=== PATIENT | male | born 1990 | race African-American/Black ===

== ENCOUNTER 2017-01-14 17:28 | Emergency (ER) | payer BC, OTHER ==
[2017-01-14 17:41] VITALS: BP 131/101; PULSE 67; TEMP 98.3; BMI 25.8
--- NOTE | 2017-01-14 17:59 | PDOC ---
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 Patient reports "there was a machine coming my way, and I was trying to push against it to move it away from me, and I put my foot up on the wall to brace myself, but then my ankle twisted and I felt a pop." Patient is ambulatory in the fast track area but reports pain and swelling to both sides of ankle. No recent travel or sick contacts. PAST MEDICAL HISTORY: Denies past medical history FAMILY HISTORY: Denies SOCIAL HISTORY:Denies tobacco, alcohol, illicit drug use. SURGICAL HISTORY: Denies ALLERGIES: No known drug allergies REVIEW OF SYSTEMS General/Constitutional: Denies fever or chills. Denies weakness, weight change. HEENT: Denies change in vision. Denies ear pain or discharge. Denies sore throat. Cardiovascular: Denies chest pain or shortness of breath. Respiratory: Denies cough, wheezing, or hemoptysis. Gastrointestinal: Denies nausea, vomiting, diarrhea or constipation. Denies rectal bleeding. Genitourinary: Denies dysuria, frequency, or change in urination. Musculoskeletal: L ankle pain. PHYSICAL EXAM General Appearance: Well-appearing, appropriately dressed. No apparent distress. HEENT: EOMI, PERRLA. No conjunctival pallor. No photophobia, scleral icterus. Respiratory/Chest: Lungs CTAB. Cardiovascular: RRR. S1, S2. Vascular Pulses: Dorsalis-Pedis (R): 2+, Dorsalis-Pedis (L): 2+ Musculoskeletal/Extremities: Tenderness to medial and lateral malleolus of L ankle, minimal swelling to lateral malleolus. Normal inspection. FROM of all extremities, normal capillary refill. Pelvis Stable. No CVA tenderness. No tenderness to extremities, pedal edema, swelling, erythema or deformity. Integumentary: Appropriate color, dry, warm. No cyanosis, erythema, jaundice or rash Neurologic: bit tapper II-XII intact. Fully oriented, alert. Appropriate mood/affect. Motor strength 5/5. No appreciable EOM palsy, facial droop or sensory deficit. 01/14/17 18:07 Past History - Past Medical History Allergies/Adverse Reactions: Allergies Allergy/AdvReac Type Severity Reaction Status Date / Time No Known Allergies Allergy Verified 01/14/17 17:30 Home Medications: Ambulatory Orders Ibuprofen 600 mg PO TID #30 tablet 01/14/17 Anemia: No Asthma: No COPD: No CHF: No Diabetes: No HTN: No Hypercholesterolemia: No - Surgical History Abdominal Surgery: No Appendectomy: No GI Surgery: No - Suicide/Smoking/Psychosocial Hx Smoking Status: No Smoking History: Current some day smoker Number of Cigarettes Smoked Daily: 5 Information on smoking cessation initiated: No Hx Alcohol Use: No Drug/Substance Use Hx: No Substance Use Type: None *Physical Exam - Vital Signs Last Vital Signs Temp Pulse Resp BP Pulse Ox 98.3 F 67 18 131/101 100 01/14/17 17:30 01/14/17 17:30 01/14/17 17:30 01/14/17 17:30 01/14/17 17:30 Medical Decision Making - Medical Decision Making 01/14/17 18:14 27 yo M with no PMH presents to [facility] with pain to L ankle s/p work accident. -xray toradol jose roberto bandage, crutches *DC/Admit/Observation/Transfer Diagnosis at time of Disposition: Ankle sprain Qualifiers: Encounter type: initial encounter Involved ligament of ankle: unspecified ligament Laterality: left Qualified Code(s): S93.402A - Sprain of unspecified ligament of left ankle, initial encounter; S93.402A - Sprain of unspecified ligament of left ankle, initial encounter - Discharge Dispostion Disposition: HOME Condition at time of disposition: Stable Admit: No - Prescriptions Prescriptions: Ibuprofen 600 mg PO TID #30 tablet - Referrals Referrals: Lucina Talbot MD [Primary Care Provider] - Todd Pitt MD [Staff Physician] - - Patient Instructions Printed Discharge Instructions: DI for Ankle Sprain, How To Perform RICE (Rest , Ice, Compress, Elevate) Additional Instructions: Please take medication as prescribed. Follow up with orthopedics if pain persists past 1 week. If you develop any increased swelling or pain, loss of sensation to your foot, or any new or worsening symptoms, please return to the ER. - Post Discharge Activity Forms/Work/School Notes: Back to Work
[2017-01-14] MEDS ORDERED: KETOROLAC TROMETHAMINE 60 MG/2 ML VIAL IM ONE (18:00)
[2017-01-14] MEDS ORDERED: KETOROLAC TROMETHAMINE 60 MG/2 ML VIAL ONE (18:09)
== END 2017-01-14 18:26 | disposition home or self-care (01) ==
LOC: JERFT 17:28
PROC: 3E0233Z Introduction of Anti-inflammatory into Muscle, Percutaneous Approach (ICD-10-PCS; principal; 2017-01-14)
DX: S93.402A Sprain of unspecified ligament of left ankle, initial encounter (principal); X50.1XXA Overexertion from prolonged static or awkward postures, initial encounter; Y93.89 Activity, other specified; Y92.512 Supermarket, store or market as the place of occurrence of the external cause; Y99.0 Civilian activity done for income or pay
CPT/HCPCS: 73610-TC-LT; 73630-TC-LT; 99281-25

== ENCOUNTER 2017-06-13 03:06 | Emergency (ER) | payer OTHER ==
[2017-06-13] MEDS ORDERED: PENICILLIN V POTASSIUM 500 MG TABLET PO ONE (03:17)
[2017-06-13] MEDS ORDERED: IBUPROFEN 600 MG TABLET (FP) PO ONE ×2 (03:17→03:24)
[2017-06-13] MEDS ORDERED: ACETAMINOPHEN WITH CODEINE 300MG/30MG TABLET PO ONE (03:17)
[2017-06-13] MEDS ORDERED: ACETAMINOPHEN WITH CODEINE 300MG/30MG TABLET ONE (03:24)
--- NOTE | 2017-06-13 03:25 | PDOC ---
History of Present Illness - General History Source: Patient <Bony Buckley - Last Filed: 06/13/17 03:17> - General Exam Limitations: No Limitations - History of Present Illness Initial Comments: 06/13/17 03:27 The patient is a 27 year old male, with no significant past medical history, who presents to the emergency department complaining of, progressively worsening toothache for approx. one week. The patient states he was woken up secondary to the toothache this morning at 3 am (approx. 30 minutes ago) and so he decided to come to the ED for evaluation. That patient states he has not visited a dentist for the toothache. He denies any recent fevers, chills, headache or dizziness. He denies any recent nausea, vomit, diarrhea or constipation. He denies any recent chest pain or shortness of breath. Allergies: NKA <Hamlet Blackburn - Last Filed: 06/13/17 03:28> - General Stated Complaint: TOOTHACHE Time Seen by Provider: 06/13/17 03:14 Past History - Past Medical History Anemia: No Asthma: No COPD: No CHF: No Diabetes: No HTN: No Hypercholesterolemia: No - Surgical History Abdominal Surgery: No Appendectomy: No GI Surgery: No - Suicide/Smoking/Psychosocial Hx Smoking Status: No Smoking History: Current some day smoker Number of Cigarettes Smoked Daily: 5 Hx Alcohol Use: No Drug/Substance Use Hx: No Substance Use Type: None <Luna Buckleyan - Last Filed: 06/13/17 03:17> <Hamlet Blackburn - Last Filed: 06/13/17 03:28> - Past Medical History Allergies/Adverse Reactions: Allergies Allergy/AdvReac Type Severity Reaction Status Date / Time No Known Allergies Allergy Verified 01/14/17 17:30 Home Medications: Ambulatory Orders Ibuprofen 600 mg PO TID #30 tablet 01/14/17 Acetaminophen W/ Codeine #3 [Tylenol # 3] 1 tab PO Q6H #20 tablet MDD 4 Ibuprofen [Motrin] 600 mg PO TID #30 tablet 06/13/17 Penicillin V Potassium [Pen Vee K -] 500 mg PO TID #30 tablet 06/13/17 Review of Systems - Review of Systems Comments:: 06/13/17 03:27 CONSTITUTIONAL: Absent: fever, no chills, no fatigue EYES: Absent: visual changes ENT: Present: (+) Toothache. Absent: ear pain, no sore throat CARDIOVASCULAR: Absent: chest pain, no palpitations RESPIRATORY: Absent: cough, no SOB GI: Absent: abdominal pain, no nausea, no vomiting, no constipation, no diarrhea GENITOURINARY: Absent: dysuria, no frequency, no hematuria MUSKULOSKELETAL: Absent: back pain, no arthralgia, no myalgia SKIN: Absent: rash NEURO: Absent: headache <Hamlet Blacbkurn - Last Filed: 06/13/17 03:28> *Physical Exam - Vital Signs Last Vital Signs Temp Pulse Resp BP Pulse Ox 98.3 F 84 18 138/89 100 06/13/17 03:19 06/13/17 03:19 06/13/17 03:19 06/13/17 03:19 06/13/17 03:19 - Physical Exam Comments: 06/13/17 03:28 GENERAL: Well-appearing, well-nourished. No apparent distress. HEENT: (+) Tooth number 17 left lower molar appears to be broken and slightly inflamed. Normocephalic, atraumatic. PERRL, EOM intact. CARDIOVASCULAR: Normal S1, S2. Regular rate and rhythm. PULMONARY: Clear to auscultation bilaterally. ABDOMEN: Soft, non-distended, non-tender. EXTREMITIES: Normal ROM in all four extremities. No gross deformities. SKIN: Warm, dry. No rash NEUROLOGICAL: No focal neurological deficits. <Hamlet Blackburn - Last Filed: 06/13/17 03:28> ED Treatment Course - Medications Given in the ED: ED Medications Discontinued Medications Generic Name Dose Route Start Last Admin Trade Name Dharmesh PRN Reason Stop Dose Admin Acetaminophen/Codeine Phosphate 1 tab 06/13/17 03:17 06/13/17 03:26 Tylenol # 3 - PO 06/13/17 03:18 1 tab ONCE ONE Administration <Hamlet Blackburn Filed: 06/13/17 03:28> Medical Decision Making - Medical Decision Making 06/13/17 03:26 Dr. Buckley: The scribe's documentation has been prepared under my direction and personally reviewed by me in its entirery. I confirm that the note above accurately reflects all work, treatment, procedures, and medical decision making performed by me. <Bony Buckley - Last Filed: 06/13/17 03:17> *DC/Admit/Observation/Transfer - Discharge Dispostion Admit: No <Bony Buckley - Last Filed: 06/13/17 03:17> - Attestations Scribe Attestion: 06/13/17 03:28 Documentation prepared by Hamlet Blackburn, acting as medical coding instructor for Bony Buckley MD. <Hamlet Blackburn - Last Filed: 06/13/17 03:28> Diagnosis at time of Disposition: Toothache - Discharge Dispostion Disposition: HOME Condition at time of disposition: Stable - Prescriptions Prescriptions: Acetaminophen W/ Codeine #3 [Tylenol # 3] 1 tab PO Q6H #20 tablet MDD 4 Ibuprofen [Motrin] 600 mg PO TID #30 tablet Penicillin V Potassium [Pen Vee K -] 500 mg PO TID #30 tablet - Patient Instructions Printed Discharge Instructions: DI for Tooth Decay Additional Instructions: Please take medication as directed. Make an appointment with a dentist immediately. Avoid alcohol or driving when taking Tylenol #3.
[2017-06-13 03:26] VITALS: BP 138/89; PULSE 84; TEMP 98.3; BMI 25.8
== END 2017-06-13 03:30 | disposition home or self-care (01) ==
LOC: JER 03:06
DX: K08.89 Other specified disorders of teeth and supporting structures (principal)
CPT/HCPCS: 99281-25

== ENCOUNTER 2017-09-18 19:03 | Emergency (ER) | payer SELFPAY ==
[2017-09-18 19:46] VITALS: BP 140/83; PULSE 97; TEMP 98.6; BMI 25.8
--- NOTE | 2017-09-18 20:23 | PDOC ---
History of Present Illness - General Chief Complaint: Sore Throat Stated Complaint: HAND INJURY/ PAIN Time Seen by Provider: 09/18/17 20:15 - History of Present Illness Initial Comments: 27-year-old male presents for evaluation of sore throat 2 days with subjective fever at home and chills. Painful swallowing no other associated symptoms no comorbidities. He also has right hand pain after punching a wall about 2-1/2-3 weeks ago. He points to the MCP J of his right hand fourth finger. 09/18/17 20:21 Past History - Past Medical History Allergies/Adverse Reactions: Allergies Allergy/AdvReac Type Severity Reaction Status Date / Time No Known Allergies Allergy Verified 01/14/17 17:30 Home Medications: Ambulatory Orders Amoxicillin - [Amoxicillin 500mg Capsule -] 500 mg PO BID 10 Days #20 capsule Anemia: No Asthma: No COPD: No CHF: No Diabetes: No HTN: No Hypercholesterolemia: No - Surgical History Abdominal Surgery: No Appendectomy: No GI Surgery: No - Suicide/Smoking/Psychosocial Hx Smoking Status: No Smoking History: Never smoked Have you smoked in the past 12 months: No Number of Cigarettes Smoked Daily: 5 Information on smoking cessation initiated: No Hx Alcohol Use: No Drug/Substance Use Hx: No Substance Use Type: None Review of Systems - Review of Systems Constitutional: Yes: See HPI, Chills, Fever, Weakness. No: Night Sweats HEENTM: Yes: Throat Pain Musculoskeletal: Yes: See HPI, Joint Pain All Other Systems: Reviewed and Negative *Physical Exam - Vital Signs Last Vital Signs Temp Pulse Resp BP Pulse Ox 98.6 F 97 H 18 140/83 100 09/18/17 19:40 09/18/17 19:40 09/18/17 19:40 09/18/17 19:40 09/18/17 19:40 - Physical Exam Comments: GENERAL: The patient is awake, alert, and fully oriented, in no acute distress. HEAD: Normal with no signs of trauma. EYES: Pupils equal, round and reactive to light, extraocular movements intact, sclera anicteric, conjunctiva clear. ENT: Ears normal, nares patent, oropharynx mildly injected without exudates. Moist mucous membranes. NECK: Normal range of motion, supple without lymphadenopathy, JVD, or masses. LUNGS: Breath sounds equal, clear to auscultation bilaterally. No wheezes, and no crackles. HEART: Regular rate and rhythm, normal S1 and S2 without murmur, rub or gallop. ABDOMEN: Soft, nontender, normoactive bowel sounds. No guarding, no rebound. No masses. EXTREMITIES: Normal range of motion, no edema. No clubbing or cyanosis. No cords, erythema, or tenderness. NEUROLOGICAL: Cranial nerves II through XII grossly intact. Normal speech, normal gait. PSYCH: Normal mood, normal affect. SKIN: Warm, Dry, normal turgor, no rashes or lesions noted. The right hand is normal skin color and temperature without swelling he has tenderness over the fourth MCP J full range of motion without any gross sensorimotor deficits she's neurovascularly intact without any evidence of instability. 09/18/17 20:22 ED Treatment Course - RADIOLOGY Radiology Studies Ordered: Category Date Time Status HAND- RIGHT [RAD] Stat Radiology 09/18/17 20:20 Ordered Medical Decision Making - Medical Decision Making Strep test pending as well as an x-ray of his right hand. 09/18/17 20:23 09/18/17 20:52 Series of the right hand are negative strep test is still pending. 09/18/17 21:01 Test is positive I'll treat him with amoxicillin for 10 days twice a day *DC/Admit/Observation/Transfer Diagnosis at time of Disposition: Contusion, hand, Strep pharyngitis - Discharge Dispostion Disposition: HOME Condition at time of disposition: Stable Decision to Admit order: No - Prescriptions Prescriptions: Amoxicillin - [Amoxicillin 500mg Capsule -] 500 mg PO BID 10 Days #20 capsule - Referrals Referrals: Fransisco Perea [Non Staff, Medical] - Jorgito Diaz MD [Staff Physician] - - Patient Instructions Printed Discharge Instructions: Contusion, Strep Throat Additional Instructions: You have a right hand contusion which can be treated with ice and elevation. I recommended hand surgery follow-up for further evaluation and treatment options. Your strep test was positive I placed you on amoxicillin twice daily for 10 days this should clear the infection. Please follow-up with her primary care physician If your symptoms worsen or go unresolved prior to follow-up with hand surgery or your primary care physician please return to the emergency room both follow- ups should be done within the next 1-2 days. - Post Discharge Activity
== END 2017-09-18 21:26 | disposition home or self-care (01) ==
LOC: JERFT 19:03
DX: J02.0 Streptococcal pharyngitis (principal); B95.0 Streptococcus, group A, as the cause of diseases classified elsewhere; S60.221A Contusion of right hand, initial encounter; W22.8XXA Striking against or struck by other objects, initial encounter; Y93.89 Activity, other specified; Y92.89 Other specified places as the place of occurrence of the external cause; Y99.8 Other external cause status
CPT/HCPCS: 73130-TC-RT-FY; 87070; 87077; 87430; 99281-25

== ENCOUNTER 2018-12-15 11:40 | Emergency (ER) | payer OTHER ==
[2018-12-15 11:55] VITALS: BP 110/69; PULSE 73; TEMP 98.2; BMI 26.6
[2018-12-15] MEDS ORDERED: IBUPROFEN 600 MG TABLET (FP) PO ONE ×2 (12:27→12:34)
--- NOTE | 2018-12-15 12:41 | PDOC ---
History of Present Illness - General Chief Complaint: Pain Stated Complaint: PAIN Time Seen by Provider: 12/15/18 11:58 History Source: Patient Exam Limitations: No Limitations - History of Present Illness Initial Comments: 12/15/18 12:34 28 yo M w/ no sig PMHx comes in c/o bilateral foot pain for the past week. He c/ o R sided heel pain and L sided lateral foot pain. He plays a lot of basketball , walks a lot and says that he was also having achilles pain bilaterally but that has resolved. He has not taken any meds for pain. Denies numbness/tingling , no weakness, no ankle/knee/back pain, no other complaints today. Past History - Past Medical History Allergies/Adverse Reactions: Allergies Allergy/AdvReac Type Severity Reaction Status Date / Time No Known Allergies Allergy Verified 12/15/18 11:50 Home Medications: Ambulatory Orders Amoxicillin - [Amoxicillin 500mg Capsule -] 500 mg PO BID 10 Days #20 capsule Ibuprofen 600 mg PO TID #18 tablet 12/15/18 Anemia: No Asthma: No COPD: No CHF: No Diabetes: No HTN: No Hypercholesterolemia: No - Surgical History Abdominal Surgery: No Appendectomy: No GI Surgery: No - Suicide/Smoking/Psychosocial Hx Smoking Status: No Smoking History: Current every day smoker Have you smoked in the past 12 months: No Number of Cigarettes Smoked Daily: 5 Information on smoking cessation initiated: No Hx Alcohol Use: No Drug/Substance Use Hx: No Substance Use Type: None Review of Systems - Review of Systems Able to Perform ROS?: Yes Constitutional: No: Chills, Fever, Malaise, Night Sweats HEENTM: No: Eye Pain, Recent change in vision, Throat Pain Respiratory: No: Cough, Shortness of Breath Cardiac (ROS): No: Chest Pain, Palpitations, Chest Tightness ABD/GI: No: Diarrhea, Nausea, Vomiting, Abdominal cramping : No: Dysuria, Hematuria Musculoskeletal: No: Back Pain Integumentary: No: Rash Neurological: No: Headache, Numbness, Dizziness Psychiatric: No: Change in Appetite Endocrine: No: Unexplained Weight Loss *Physical Exam - Vital Signs Last Vital Signs Temp Pulse Resp BP Pulse Ox 98.2 F 73 18 110/69 100 12/15/18 11:47 12/15/18 11:47 12/15/18 11:47 12/15/18 11:47 12/15/18 11:47 - Physical Exam General Appearance: Yes: Nourished. No: Apparent Distress HEENT: positive: ELAINE, Normal ENT Inspection, Normal Voice. negative: Pale Conjunctivae, Scleral Icterus (R), Scleral Icterus (L) Neck: negative: Decreased range of motion Respiratory/Chest: negative: Respiratory Distress, Accessory Muscle Use Cardiovascular: positive: Regular Rate Musculoskeletal: positive: Normal Inspection. negative: CVA Tenderness, Decreased Range of Motion Extremity: positive: Normal Capillary Refill, Normal Inspection, Normal Range of Motion, Other (R heel with mild tenderness, no skin changes, no erythema, no warmth, no streaking (-)hager test bilaterally, no calf tenderness b/l, R foot with mild tenderness to the lateral aspect of the foot, no skin changes, no erythema/warmth, good pulses bilaterally, good sensory function, good cap refill. NVI. Bilateral ankles w/ FROM, 5/5 strength ). negative: Tender, Pedal Edema Integumentary: positive: Normal Color, Dry. negative: Jaundice, Rash Neurologic: positive: Fully Oriented, Alert, Normal Mood/Affect ED Treatment Course - RADIOLOGY Radiology Studies Ordered: Category Date Time Status FOOT-LEFT [RAD] Stat Radiology 12/15/18 12:27 Ordered FOOT-RIGHT [RAD] Stat Radiology 12/15/18 12:27 Ordered Medical Decision Making - Medical Decision Making 12/15/18 12:45 28 yo M w/ foot pain, likely heel spurs, plantar fasciitis, will do xrays, give motrin and reassess. 12/15/18 13:22 Xrays show pes planus, R foot with mild osteoarthritis. WIll discharge with ortho follow up MOtrin PRN for pain Return for worsening/concerning symptoms Pt verbalizes understanding and agrees with plan *DC/Admit/Observation/Transfer Diagnosis at time of Disposition: Foot pain, bilateral Pes planus Qualifiers: Laterality: unspecified laterality Qualified Code(s): M21.40 - Flat foot [pes planus] (acquired), unspecified foot Osteoarthritis of foot Qualifiers: Osteoarthritis type: unspecified Laterality: unspecified laterality Qualified Code(s): M19.079 - Primary osteoarthritis, unspecified ankle and foot - Discharge Dispostion Disposition: HOME Condition at time of disposition: Stable - Referrals Referrals: Jorgito De Guzman MD [Primary Care Provider] - Jose C Carter DO [Staff Physician] - - Patient Instructions Additional Instructions: Please call your PMD and the orthopedist as suggested for a follow up appointment. Return for worsening/concerning symptoms. - Post Discharge Activity
== END 2018-12-15 13:37 | disposition home or self-care (01) ==
LOC: JER 11:40
DX: M21.42 Flat foot [pes planus] (acquired), left foot (principal); M21.41 Flat foot [pes planus] (acquired), right foot; M19.071 Primary osteoarthritis, right ankle and foot
CPT/HCPCS: 73630-TC-LT; 73630-TC-RT-FY; 99281-25

== ENCOUNTER 2021-01-03 20:42 | Emergency (ER) | payer OTHER ==
[2021-01-03 20:47] VITALS: BP 125/72; PULSE 89; TEMP 97.8; BMI 24.2
[2021-01-03] MEDS ORDERED: DIPHTH,PERTUSS(ACELL),TET 0.5 ML DISP.SYRIN IM ONE ×3 (21:18→23:48)
[2021-01-03] MEDS ORDERED: ACETAMINOPHEN 500 MG TABLET (FP) PO ONE (21:18)
[2021-01-03] MEDS ORDERED: ACETAMINOPHEN 325 MG TABLET (FP) ONE (21:31)
== END 2021-01-03 23:51 | disposition home or self-care (01) ==
LOC: JER 20:42 → JERFT 20:42 → JER 23:51
PROC: 3E0234Z Introduction of Serum, Toxoid and Vaccine into Muscle, Percutaneous Approach (ICD-10-PCS; principal; 2021-01-03)
DX: S01.81XA Laceration without foreign body of other part of head, initial encounter (principal); S09.90XA Unspecified injury of head, initial encounter; S06.0X0A Concussion without loss of consciousness, initial encounter; S09.93XA Unspecified injury of face, initial encounter; Y04.8XXA Assault by other bodily force, initial encounter; Y07.02 Wife, perpetrator of maltreatment and neglect
CPT/HCPCS: 70450-TC; 70486-TC; 72125-TC; 90471; 90715; 99285-25

== ENCOUNTER 2023-07-24 02:24 | Emergency (ER) | payer OTHER ==
[2023-07-24 02:31] VITALS: BP 123/77; PULSE 94; RESP 20; TEMP 98.8; BMI 25.0
[2023-07-24] MEDS ORDERED: IBUPROFEN 100 MG/5 ML UNIT DOSE CUPS ONE (03:41)
[2023-07-24] MEDS: IBUPROFEN 400 MG TABLET (FP) PO ONE (03:47)
[2023-07-24] MEDS: ACETAMINOPHEN 325 MG TABLET (FP) PO ONE (03:47)
[2023-07-24] MEDS ORDERED: PENICILLIN G BENZATHINE 1,200,000 UNIT/2 ML PFS IM ONE (05:54)
[2023-07-24] MEDS: PENICILLIN G BENZATHINE 1,200,000 UNIT/2 ML PFS IM ONE (05:59)
== END 2023-07-24 06:04 | disposition home or self-care (01) ==
LOC: JER 02:24
DX: R07.0 Pain in throat (principal); R50.9 Fever, unspecified; J02.0 Streptococcal pharyngitis
CPT/HCPCS: 87651; 99284-25

== ENCOUNTER 2024-09-04 09:03 | Emergency (ER) | payer OTHER ==
[2024-09-04 09:16] VITALS: RESP 18; TEMP 100; BMI 25.8
[2024-09-04] MEDS ORDERED: ACETAMINOPHEN INJECTION 100 ML ONE (09:28)
[2024-09-04 09:54] LABS: ABSOLUTE IMMATURE GRANULOCYTES 0.04 x10^3/uL (0.0-0.031); HEMATOCRIT 46.6 % (40.1-51.0); MEAN CELL VOLUME 87.3 fl (79.0-92.2); MONOCYTE % 5.4 % (5.3-12.2); RDW 13.3 % (12.0-15.6)
[2024-09-04 09:56] LABS: BASOPHILS # 0.03 x10^3/uL (0.01-0.08); HEMOGLOBIN 14.9 g/dL (13.7-17.5); MEAN PLT VOLUME 10.9 fl (9.4-12.4); MONOCYTE # 0.67 x10^3/uL (0.30-0.82); PLATELET COUNT 199 x10^3/uL (163-337)
[2024-09-04] MEDS: ACETAMINOPHEN 1000 MG/100 ML BAG IVPB ONE (10:03)
[2024-09-04] MEDS: ACETAMINOPHEN 500 MG TABLET (FP) PO ONE (10:03)
[2024-09-04] MEDS: IBUPROFEN 600 MG TABLET (FP) PO ONE (10:03)
[2024-09-04] MEDS: SODIUM CHLORIDE 0.9% 500 ML INFUS.BAG IV ONE (10:03)
[2024-09-04 10:10] LABS: POTASSIUM 4.6 mmol/L (3.5-5.1)
[2024-09-04 10:13] LABS: CALCIUM 9.5 mg/dL (8.5-10.1)
[2024-09-04 10:14] LABS: ALBUMIN 4.1 g/dl (3.4-5.0); BLOOD UREA NITROGEN 9.7 mg/dL (7-18)
[2024-09-04 10:17] LABS: CREATININE 1.2 mg/dL (0.55-1.3)
[2024-09-04 10:19] LABS: BILIRUBIN,TOTAL 0.8 mg/dL (0.2-1)
[2024-09-04 10:27] LABS: TOT PROT 8.5 g/dl (6.4-8.2)
[2024-09-04 11:28] VITALS: BP 126/70; PULSE 87
== END 2024-09-04 11:35 | disposition home or self-care (01) ==
LOC: JER 09:03
PROC: 3E033NZ Introduction of Analgesics, Hypnotics, Sedatives into Peripheral Vein, Percutaneous Approach (ICD-10-PCS; principal; 2024-09-04)
DX: R50.9 Fever, unspecified (principal); B34.9 Viral infection, unspecified; M79.10 Myalgia, unspecified site; R53.83 Other fatigue; R19.7 Diarrhea, unspecified; R00.0 Tachycardia, unspecified
CPT/HCPCS: 0241U-QW; 36415; 71046-TC-FY; 80053; 85025; 99284-25; J0131

== ENCOUNTER 2024-09-04 23:20 | Emergency (ER) | payer OTHER ==
[2024-09-04 23:51] VITALS: BP 120/80; PULSE 87; RESP 16; TEMP 99.5; BMI 25.8
[2024-09-05] MEDS ORDERED: IBUPROFEN 600 MG TABLET (FP) PO ONE (00:10)
[2024-09-05] MEDS: IBUPROFEN 600 MG TABLET (FP) PO ONE (00:11)
== END 2024-09-05 00:37 | disposition home or self-care (01) ==
LOC: JER 23:20
DX: R50.9 Fever, unspecified (principal); B34.9 Viral infection, unspecified; M79.10 Myalgia, unspecified site; R11.2 Nausea with vomiting, unspecified; R19.7 Diarrhea, unspecified
CPT/HCPCS: 99283-25